=== PATIENT | male | born 1980 | race Caucasian/White ===

== ENCOUNTER 2017-02-28 21:47 | Emergency (ER) | payer OTHER ==
[2017-02-28] MEDS ORDERED: Lidocaine 1% 20 ML MDV INJECT ONE (21:54)
--- NOTE | 2017-02-28 22:05 | EDM.PDOC ---
ED HPI GENERAL MEDICAL PROBLEM - General Chief Complaint: General Stated Complaint: BIT THROUGH LOWER LIP Time Seen by Provider: 02/28/17 21:52 - History of Present Illness INITIAL COMMENTS - FREE TEXT/NARRATIVE: HISTORY AND PHYSICAL: History of present illness: Patient 36-year-old white male presents status post facial trauma which he sustained multiple lacerations of his midface is basically involves his lower lip and to a lesser degree more superficial upper lip he did loosen some teeth with this and this occurred when he was struck with a baseball while [place] it he denies up-to-date tetanus denies loss consciousness denies neck pain denies any other trauma or concern Review of systems: As per history of present illness and below otherwise all systems reviewed and negative. Past medical history: As per history of present illness and as reviewed below otherwise noncontributory. Surgical history: As per history of present illness and as reviewed below otherwise noncontributory. Social history: No reported history of drug or alcohol abuse. Family history: As per history of present illness and as reviewed below otherwise noncontributory. Physical exam: HEENT: Patient has multiple lacerations lower lip involves an inner laceration that is approximately 1/2 cm and a outer laceration that is approximately 1 cm these do not communicate and are not through and through he has a more superficial laceration to his upper lip that does not require suturing he has no rotational defects or fractured teeth he does have some loose teeth noted in his upper and lower, normocephalic, pupils reactive, negative for conjunctival pallor or scleral icterus, mucous membranes moist, throat clear, neck supple, nontender, trachea midline. Lungs: Clear to auscultation, breath sounds equal bilaterally, chest nontender. Heart: S1S2, regular, negative for clicks, rubs, or JVD. Abdomen: Soft, nondistended, nontender. Negative for masses or hepatosplenomegaly. Negative for costovertebral tenderness. Pelvis: Stable nontender. Genitourinary: Deferred. Rectal: Deferred. Extremities: Atraumatic, negative for cords or calf pain. Neurovascular unremarkable. Neuro: Awake, alert, oriented. Cranial nerves II through XII unremarkable. Cerebellum unremarkable. Motor and sensory unremarkable throughout. Exam nonfocal. Diagnostics: None Therapeutics: 0.5 Td IM wounds were irrigated with copious months 0.9 normal saline and anesthetized 1% lidocaine without epinephrine and closed with 50 absorbable gut suture Impression: [#1 midface trauma with multiple lip lacerations #2 dental trauma without fracture or avulsion Definitive disposition and diagnosis as appropriate pending reevaluation and review of above. lip/mouth Pain Score (Numeric/FACES): 7 - Related Data Allergies Allergy/AdvReac Type Severity Reaction Status Date / Time No Known Allergies Allergy Verified 08/05/15 11:42 Home Meds: Home Meds . [No Known Home Meds] 08/05/15 [History] Past Medical History - Past Health History Medical/Surgical History: Denies Medical/Surgical History Social & Family History - Tobacco Use Smoking Status *Q: Current Every Day Smoker Years of Tobacco use: 18 Packs/Tins Daily: 1 Second Hand Smoke Exposure: Yes - Recreational Drug Use Recreational Drug Use: No ED ROS GENERAL - Review of Systems Review Of Systems: ROS reveals no pertinent complaints other than HPI. ED EXAM, GENERAL - Physical Exam Exam: See Below (See dictation) Course - Vital Signs Last Recorded V/S: Last Vital Signs Temp 36.3 C 02/28/17 21:53 Pulse 66 02/28/17 21:53 Resp 16 02/28/17 21:53 BP 128/82 02/28/17 21:53 Pulse Ox 94 L 02/28/17 21:53 - Orders/Labs/Meds Meds: Medications Discontinued Medications Generic Name Dose Route Start Last Admin Trade Name Freq PRN Reason Stop Dose Admin Lidocaine HCl 20 ml 02/28/17 21:54 Xylocaine 1% INJECT 02/28/17 21:55 ONETIME ONE Departure - Departure Time of Disposition: 22:04 Disposition: Home, Self-Care 01 Condition: good Clinical Impression: Head trauma, Laceration - Discharge Information Forms: ED Department Discharge Additional Instructions: The following information is given to patients seen in the emergency department who are being discharged to home. This information is to outline your options for follow-up care. We provide all patients seen in our emergency department with a follow-up referral. The need for follow-up, as well as the timing and circumstances, are variable depending upon the specifics of your emergency department visit. If you don't have a primary care physician on staff, we will provide you with a referral. We always advise you to contact your personal physician following an emergency department visit to inform them of the circumstance of the visit and for follow-up with them and/or the need for any referrals to a consulting specialist. The emergency department will also refer you to a specialist when appropriate. This referral assures that you have the opportunity for followup care with a specialist. All of these measure are taken in an effort to provide you with optimal care, which includes your followup. Under all circumstances we always encourage you to contact your private physician who remains a resource for coordinating your care. When calling for followup care, please make the office aware that this follow-up is from your recent emergency room visit. If for any reason you are refused follow-up, please contact the [facility] emergency department at and asked to speak to the emergency department charge nurse. Follow-up primary medical doctor 1-2 days return as needed as discussed
[2017-02-28] MEDS ORDERED: Diphtheria,Pertussis(Acell),Tetanus Vaccine 0.5 ML Syringe IM ONE (22:18)
[2017-02-28] MEDS ORDERED: Bacitracin Oint 1 GM U/D Packet TOP ONE (22:42)
[2017-02-28 23:27] VITALS: BP 115/76
== END 2017-02-28 23:00 | disposition home or self-care (01) ==
LOC: MW.ED 21:47
DX: S01.511A Laceration without foreign body of lip, initial encounter (principal); S09.8XXA Other specified injuries of head, initial encounter; W21.03XA Struck by baseball, initial encounter; Y93.64 Activity, baseball; F17.210 Nicotine dependence, cigarettes, uncomplicated; Z23 Encounter for immunization
CPT/HCPCS: 12011; 90471; 90715; 99283; 99283-25